=== PATIENT | female | born 1995 | race Caucasian/White ===

== ENCOUNTER 2021-05-25 19:46 | Emergency (ER) | payer SELFPAY ==
[2021-05-25 20:32] LABS: Urine Blood Trace-intact (Negative); Urine Glucose Negative (Negative); Urine Protein Negative (Negative); Urine Specific Gravity 1.025 (1.005-1.030)
[2021-05-25 20:53] LABS: Basophils % 0.3 % (0-1.3); Hematocrit 41.3 % (36.0-45.0); Lymphocytes % 22.2 % (15.3-44.8); RBC Red Blood Cell Count 4.71 M/uL (3.86-4.86)
[2021-05-25 21:20] LABS: BUN Blood Urea Nitrogen 11 mg/dL (7-18); Bicarbonate 27 mmol/L (21-32); Glucose Level 92 mg/dL (74-106); Potassium 3.4 mmol/L (3.5-5.1); Sodium Level 139 mmol/L (136-145)
[2021-05-25 21:27] LABS: HCG, Quantitative < 1 mIU/mL (1-3)
[2021-05-25 21:30] LABS: Urine Specific Gravity/Preg 1.025 (1.005-1.030)
--- NOTE | 2021-05-25 22:17 | RAD REPORT ---
EXAM DESCRIPTION: US - 1St Trimest Single 1St Fetus - 05/25/2021 9:45 pm CLINICAL HISTORY: ABD CRAMPING, COMPARISON: No comparisons FINDINGS: The uterus measures 8.9 x 5.4 x 5.3 cm. Endometrial stripe is thickened to 17 mm. No IUP is evident. The right ovary appears normal with normal blood flow. The left ovary is nonvisualized due to bowel g as shadowing. There is a large 9 cm midline pelvic mass present with low-level echoes suspicious for an endometriom a. IMPRESSION: No IUP is seen. Endometrial stripe is thickened to 17 mm. This could indicate very early stage of a . However, in the setting of an elevated HCG level, overall findings would indic ate a of unknown location. Close interval follow-up serial HCG levels and follow-up pelvic sonogram in 10-12 days would be recommended. 9 cm midline pelvic mass with low-level echoes favored to represent an endometrioma.
--- NOTE | 2021-05-25 22:42 | EDPHYS ---
Physician Documentation [facility] Name: Leni Kay Age: 25 yrs Sex: Female : 1995 Arrival Date: 05/25/2021 Time: 19:50 Bed 3 Private MD: ED Physician Naeem Potts HPI: 05/25 20:35 This 25 yrs old Female presents to ER via Ambulatory with complaints of sp3 Vaginal Bleeding, + Preg <12wks. 20:35 25-year-old female with no significant past medical history who is A0 presents to [facility] the ED for and vaginal bleeding for 2 days consisting of spotting and at no point flowing equivalent to her menses. Patient's LMP is 03/30/2021 puts her at approximately 6 weeks by dates. Patient is also having some lower abdominal cramping. Patient denies lightheadedness, neck pain, chest pain, back pain, shortness of breath, upper abdominal pain, vomiting, diarrhea, syncope, near syncope, focal neuro deficit, rash, any other significant findings on ROS at this time.. 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 - Social history:: Smoking status: Patient denies any tobacco usage or history of. ROS: 20:36 Constitutional: Negative for fever, chills, and weight loss, Eyes: Negative for injury, sp3 pain, redness, and discharge, ENT: Negative for injury, pain, and discharge, Neck: Negative for injury, pain, and swelling, Cardiovascular: Negative for chest pain, palpitations, and edema, Respiratory: Negative for shortness of breath, cough, wheezing, and pleuritic chest pain, Back: Negative for injury and pain, MS/Extremity: Negative for injury and deformity, Skin: Negative for injury, rash, and discoloration, Neuro: Negative for headache, weakness, numbness, tingling, and seizure, Psych: Negative for depression, anxiety, suicide ideation, homicidal ideation, and hallucinations, Allergy/Immunology: Negative for hives, rash, and allergies. 20:36 All other systems are negative. Exam: 20:36 Constitutional: This is a well developed, well nourished patient who is awake, alert, sp3 and in no acute distress. Head/Face: Normocephalic, atraumatic. Eyes: Pupils equal round and reactive to light, extra-ocular motions intact. Lids and lashes normal. Conjunctiva and sclera are non-icteric and not injected. Cornea within normal limits. Periorbital areas with no swelling, redness, or edema. Neck: Trachea midline, no thyromegaly or masses palpated, and no cervical lymphadenopathy. Supple, full range of motion without nuchal rigidity, or vertebral point tenderness. No Meningismus. Chest/axilla: Normal chest wall appearance and motion. Nontender with no deformity. No lesions are appreciated. Cardiovascular: Regular rate and rhythm with a normal S1 and S2. No gallops, murmurs, or rubs. Normal PMI, no JVD. No pulse deficits. Respiratory: Lungs have equal breath sounds bilaterally, clear to auscultation and percussion. No rales, rhonchi or wheezes noted. No increased work of breathing, no retractions or nasal flaring. Back: No spinal tenderness. No costovertebral tenderness. Full range of motion. Female : Normal external genitalia. Bimanual exam deferred secondary to only spotting and ultrasound is pending. Skin: Warm, dry with normal turgor. Normal color with no rashes, no lesions, and no evidence of cellulitis. MS/ Extremity: Pulses equal, no cyanosis. Neurovascular intact. Full, normal range of motion. Neuro: Awake and alert, GCS 15, oriented to person, place, time, and situation. Cranial nerves II-XII grossly intact. Motor strength 5/5 in all extremities. Sensory grossly intact. Cerebellar exam normal. Normal gait. Psych: Awake, alert, with orientation to person, place and time. Behavior, mood, and affect are within normal limits. Vital Signs: 20:09 BP 131 / 84; Pulse 111; Resp 16; Temp 98.5; Pulse Ox 100% ; jh5 21:14 BP 112 / 83; Pulse 99; Resp 18; Pulse Ox 99% on R/A; df1 MDM: 20:19 Patient medically screened. sp3 20:37 Data reviewed: vital signs, nurses notes. ED course: 25-year-old female at 6 weeks sp3 G2, presents for vaginal bleeding. 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 I am not highly suspicious for GI etiology, bladder/kidney etiology, sepsis, shock (septic or hemorrhagic), or any other critical findings at this time. Will administer normal saline 1 L, obtain routine laboratory values including quantitative hCG and UA, and a transvaginal ultrasound. Patient is n.p.o. and disposition will be based on work-up and patient course.. 22:40 ED course: Full work-up reviewed. Patient is not as quantitative hCG is less sp3 than 1 and qualitative hCG was negative. Ultrasound demonstrates an empty uterus with an endometrioma of 9 cm. Will discharge patient home with follow-up to her vehicle care specialist for further evaluation.. 05/25 20:21 Order name: Abo/rh Typing; Complete Time: 21:44 sp3 05/25 20:21 Order name: Basic Metabolic Panel; Complete Time: 21:44 sp3 05/25 20:21 Order name: CBC with Diff; Complete Time: 21:44 sp3 05/25 20:21 Order name: Quantitative Hcg; Complete Time: 21:44 sp3 05/25 20:32 Order name: Urine Dipstick-Ancillary; Complete Time: 21:44 EDCA 05/25 21:14 Order name: Urine --Ancillary (enter results); Complete Time: 21:44 df1 05/25 20:21 Order name: IV Saline Lock; Complete Time: 20:40 sp3 05/25 20:21 Order name: Labs collected and sent; Complete Time: 20:40 sp3 05/25 20:21 Order name: NPO; Complete Time: 20:40 sp3 05/25 20:21 Order name: Urine Dipstick-Ancillary (obtain specimen); Complete Time: 20:41 sp3 05/25 20:21 Order name: US 1st Trimest Single 1st Fetus sp3 05/25 21:13 Order name: Urine Test (obtain specimen); Complete Time: 21:13 df1 Administered Medications: No medications were administered Point of Care Testing: Urine : 21:10 hCG Reading: Negative; Control Reading: Positive; df1 :10 Exp: 11/12/2022; Lot #: [id number]; df1 Disposition Summary: 05/25/21 22:41 Discharge Ordered Location: Home sp3 Condition: Stable sp3 Diagnosis - Abnormal uterine and vaginal bleeding, unspecified sp3 Followup: sp3 - With: Krys Rodriguez MD - When: As needed - Reason: Discharge Instructions: - Discharge Summary Sheet sp3 - Abnormal Uterine Bleeding sp3 Forms: - Medication Reconciliation Form sp3 - Thank You Letter sp3 - Antibiotic Education sp3 - Prescription Opioid Use sp3 Signatures: Dispatcher [employer] EDNaeem Huntley MD MD sp3 Kalyani Flores df1 Rosalia Coppola RN RN jh5
--- NOTE | 2021-05-25 22:42 | ER ---
Nurse's Notes [facility] Name: Leni Kay Age: 25 yrs Sex: Female : 1995 Arrival Date: 05/25/2021 Time: 19:50 Bed 3 Private MD: Diagnosis: Abnormal uterine and vaginal bleeding, unspecified Presentation: 05/25 20:09 Chief complaint: Patient states: approx 6 weeks preg with cramping and spotting 5 starting this morning. Coronavirus screen: Vaccine status: Patient reports receiving the 2nd dose of the covid vaccine. Date December 2020 Client denies travel out of the [place] in the last 14 days. Ebola Screen: Patient negative for fever greater than or equal to 101.5 degrees Fahrenheit, and additional compatible Ebola Virus Disease symptoms Patient denies exposure to infectious person. Patient denies travel to an Ebola-affected area in the 21 days before illness onset. Initial Sepsis Screen: Does the patient meet any 2 criteria? HR > 90 bpm. Does the patient have a suspected source of infection? No. Patient's initial sepsis screen is negative. Risk Assessment: Do you want to hurt yourself or someone else? Patient reports no desire to harm self or others. Onset of symptoms was May 25, 2021. 20:09 Method Of Arrival: Ambulatory [facility] 20:09 Acuity: CLAUDIA 3 jh5 Triage Assessment: 20:10 General: Appears in no apparent distress. comfortable, slender, Behavior is calm, jh5 cooperative, appropriate for age. Pain: Complains of pain in suprapubic area Pain currently is 5 out of 10 on a pain scale. Pain: Quality of pain is described as crampy. : Reports pain vaginal bleeding that is spotty. 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 - Social history:: Smoking status: Patient denies any tobacco usage or history of. Screenin:41 Abuse screen: Denies threats or abuse. Nutritional screening: No deficits noted. df1 Tuberculosis screening: No symptoms or risk factors identified. Fall Risk None identified. Assessment: 21:18 General: Appears in no apparent distress. Behavior is calm, cooperative. Pain: df1 Complains of pain in suprapubic area Pain currently is 4 out of 10 on a pain scale. Neuro: No deficits noted. Cardiovascular: No deficits noted. Respiratory: No deficits noted. Airway is patent Respiratory effort is even, unlabored, Breath sounds are clear. Respiratory: Breath sounds are clear bilaterally. GI: GI: No deficits noted. Abdomen is flat, Bowel sounds present X 4 quads. Abd is soft and non tender X 4 quads. : No deficits noted. EENT: No deficits noted. Derm: No deficits noted. Musculoskeletal: No deficits noted. Vital Signs: 20:09 BP 131 / 84; Pulse 111; Resp 16; Temp 98.5; Pulse Ox 100% ; jh5 21:14 BP 112 / 83; Pulse 99; Resp 18; Pulse Ox 99% on R/A; df1 ED Course: 19:50 Patient arrived in ED. wm 20:10 Triage completed. jh5 20:18 Naeem Potts MD is Attending Physician. sp3 20:26 Kalyani Flores is Primary Nurse. df1 20:41 Abo/rh Typing Sent. df1 20:41 Basic Metabolic Panel Sent. df1 20:41 CBC with Diff Sent. df1 20:41 Quantitative Hcg Sent. df1 20:41 No provider procedures requiring assistance completed. Inserted saline lock: 20 gauge df1 in left antecubital area, using aseptic technique. 20:41 Patient has correct armband on for positive identification. Placed in gown. Bed in low df1 position. Call light in reach. Side rails up X 1. monitor technician on. Pulse ox on. NIBP on. Lights dimmed. Diet: Patient is NPO. 21:20 Arm band placed on right wrist. df1 21:45 US 1st Trimest Single 1st Fetus In Process Unspecified. EDMS 22:41 Krys Rodriguez MD is Referral Physician. sp3 23:00 IV discontinued, intact, bleeding controlled, No redness/swelling at site. Pressure df1 dressing applied. Administered Medications: No medications were administered Point of Care Testing: Urine : 21:10 hCG Reading: Negative; Control Reading: Positive; df1 21:10 Exp: 11/12/2022; Lot #: [id number]; df1 Outcome: 22:41 Discharge ordered by . sp3 22:59 Discharged to home ambulatory. df1 22:59 Condition: stable 22:59 Discharge instructions given to patient, family, Instructed on discharge instructions, follow up and referral plans. Demonstrated understanding of instructions, follow-up care. 23:00 Patient left the ED. df1 Signatures: Dispatcher [employer] EDMA Brielle Watters Naeem Potts MD MD sp3 Kalyani Flores df1 Rosalia Coppola, RN RN jh5
[2021-05-26 00:27] VITALS: TEMP 98.5
[2021-05-26 00:29] VITALS: BP 112/83; O2SAT 99
== END 2021-05-25 23:00 | disposition home or self-care (01) ==
LOC: ER 19:46
DX: O46.91 Antepartum hemorrhage, unspecified, first trimester (principal)
CPT/HCPCS: 36415; 76801; 80048; 81003; 81025; 84702; 85025; 86900; 86901; 99284